=== PATIENT | female | born 1950 | race Caucasian/White ===

== ENCOUNTER 2025-03-26 11:32 | Inpatient (IN) | payer MEDICARE, MEDICAID ==
[2025-03-26 12:29] LABS: #Basophils 0.09 10x3/uL (0.0-0.2); #Eosinophils 0.20 10x3/uL (0.0-0.7); #Monocytes 1.24 10x3/uL (0.11-0.59); #Neutrophils 7.50 10x3/uL (1.40-6.50); %Basophils 0.9 % (0.0-1.0); %Eosinophils 2.0 % (0.0-10.0); %Lymphocytes 11.4 % (21.0-51.0); %Monocytes 12.1 % (0.0-10.0); %Neutrophils 73.3 % (42.0-75.0); Hematocrit 39.7 % (36.0-47.0); Hemoglobin 12.2 g/dL (12.0-16.0); Mean Corpuscular Hemoglobin 30.5 pg (27.0-31.0); Mean Corpuscular Volume 99.3 fL (78.0-98.0); Platelet Count 266 10x3/uL (130-400); Red Blood Cell (RBC) Count 4.00 mill/uL (4.20-5.40); White Blood Cell (WBC) Count 10.22 10x3/uL (4.8-10.8)
[2025-03-26 13:02] LABS: ALT (SGPT) 11 U/L (Less than 34); AST (SGOT) 29 U/L (11-34); Albumin 3.0 g/dL (3.1-4.5); Alkaline Phosphatase 96 U/L (40-110); Anion Gap 15 mmol/L (10-20); BUN (Urea Nitrogen) 28 mg/dL (9.8-20.1); Bilirubin, Total 0.4 mg/dL (0.3-1.2); Calc. Creatinine Clearance 0 mL/min (70-130); Calcium 9.0 mg/dL (7.8-10.44); Carbon Dioxide 27 mmol/L (23-31); Chloride 108 mmol/L (98-107); Globulin 3.5 g/dL (2.4-3.5); Glucose 95 mg/dL (83-110); Magnesium 1.9 mg/dL (1.6-2.6); Potassium 5.1 mmol/L (3.5-5.1); Sodium 145 mmol/L (136-145)
[2025-03-26] MEDS ORDERED: Furosemide 40 MG (4 mL) VIAL ONE (13:15)
[2025-03-26] MEDS ORDERED: Ondansetron PF 4 MG/2 ML Vial IVP PRN (15:27)
[2025-03-26] MEDS ORDERED: Dextrose 50% Abboject 50 ML SYRINGE SLOW IVP PRN (15:27)
[2025-03-26] MEDS ORDERED: Glucagon 1 MG/ML KIT IM PRN (15:27)
[2025-03-26] MEDS ORDERED: cefTRIAXone (ROCEPHIN) 2 GM VIAL ONE (15:47)
[2025-03-26] MEDS ORDERED: Azithromycin 500 MG VIAL ONE (15:47)
[2025-03-26] MEDS: Azithromycin 500 MG in Sodium Chloride 0.9% 250 ML 250 ML IVPB SCH (18:34)
[2025-03-26] MEDS: Famotidine 20 MG TAB PO SCH (20:44)
[2025-03-27 03:58] LABS: #Basophils 0.09 10x3/uL (0.0-0.2); #Eosinophils 0.17 10x3/uL (0.0-0.7); #Monocytes 1.04 10x3/uL (0.11-0.59); #Neutrophils 7.00 10x3/uL (1.40-6.50); %Basophils 1.0 % (0.0-1.0); %Eosinophils 1.8 % (0.0-10.0); %Lymphocytes 10.2 % (21.0-51.0); %Monocytes 11.2 % (0.0-10.0); %Neutrophils 75.5 % (42.0-75.0); Hematocrit 39.6 % (36.0-47.0); Hemoglobin 11.4 g/dL (12.0-16.0); Mean Corpuscular Hemoglobin 29.4 pg (27.0-31.0); Mean Corpuscular Volume 102.1 fL (78.0-98.0); Platelet Count 273 10x3/uL (130-400); Red Blood Cell (RBC) Count 3.88 mill/uL (4.20-5.40); White Blood Cell (WBC) Count 9.28 10x3/uL (4.8-10.8)
[2025-03-27 04:13] LABS: ALT (SGPT) 9 U/L (Less than 34); AST (SGOT) 11 U/L (11-34); Albumin 2.9 g/dL (3.1-4.5); Alkaline Phosphatase 90 U/L (40-110); Anion Gap 13 mmol/L (10-20); BUN (Urea Nitrogen) 24 mg/dL (9.8-20.1); Bilirubin, Total 0.4 mg/dL (0.3-1.2); Calc. Creatinine Clearance 127 mL/min (70-130); Calcium 9.1 mg/dL (7.8-10.44); Carbon Dioxide 30 mmol/L (23-31); Chloride 110 mmol/L (98-107); Globulin 3.1 g/dL (2.4-3.5); Glucose 100 mg/dL (83-110); Magnesium 1.9 mg/dL (1.6-2.6); Potassium 4.3 mmol/L (3.5-5.1); Sodium 149 mmol/L (136-145)
[2025-03-27] MEDS: Furosemide 20 MG (2 mL) VIAL SLOW IVP SCH ×2 (06:34→14:36)
[2025-03-27] MEDS: Acetaminophen 500 MG TAB PO PRN (08:36)
[2025-03-27] MEDS: cefTRIAXone\\ROCEPHIN 2 GM in Sodium Chloride 0.9% 100 ML IVPB SCH (16:31)
[2025-03-27] MEDS: hydrALAZINE 10 MG TAB PO SCH (21:08)
[2025-03-27] MEDS: Calcium Carbonate 600 MG + Vit D TAB PO SCH (21:09)
[2025-03-27] MEDS: Gabapentin 300 MG CAP PO SCH (21:09)
[2025-03-27] MEDS: Artificial Tear Ophth Sol 15 ML BOT EA EYE SCH (21:58)
[2025-03-28 03:50] LABS: #Basophils 0.07 10x3/uL (0.0-0.2); #Eosinophils 0.23 10x3/uL (0.0-0.7); #Monocytes 1.11 10x3/uL (0.11-0.59); #Neutrophils 5.29 10x3/uL (1.40-6.50); %Basophils 0.9 % (0.0-1.0); %Eosinophils 2.9 % (0.0-10.0); %Lymphocytes 16.2 % (21.0-51.0); %Monocytes 13.8 % (0.0-10.0); %Neutrophils 66.0 % (42.0-75.0); Hematocrit 35.5 % (36.0-47.0); Hemoglobin 10.5 g/dL (12.0-16.0); Mean Corpuscular Hemoglobin 29.7 pg (27.0-31.0); Mean Corpuscular Volume 100.6 fL (78.0-98.0); Platelet Count 254 10x3/uL (130-400); Red Blood Cell (RBC) Count 3.53 mill/uL (4.20-5.40); White Blood Cell (WBC) Count 8.02 10x3/uL (4.8-10.8)
[2025-03-28 04:15] LABS: Anion Gap 13 mmol/L (10-20); BUN (Urea Nitrogen) 17 mg/dL (9.8-20.1); Calc. Creatinine Clearance 150 mL/min (70-130); Calcium 9.2 mg/dL (7.8-10.44); Carbon Dioxide 32 mmol/L (23-31); Chloride 104 mmol/L (98-107); Glucose 84 mg/dL (83-110); Potassium 3.6 mmol/L (3.5-5.1); Sodium 145 mmol/L (136-145)
[2025-03-28] MEDS: Losartan 25 MG TAB PO SCH (08:38)
[2025-03-28] MEDS: Colestipol 1 GM TAB PO SCH (08:38)
[2025-03-28] MEDS: Aspirin Chewable 81 MG TAB PO SCH (08:38)
[2025-03-28] MEDS: Spironolactone 25 MG TAB PO SCH (08:40)
[2025-03-28] MEDS ORDERED: Polyvinyl Alcohol 1.4%/Povidone 0.6% Opth Drops EA EYE SCH (09:00)
[2025-03-28] MEDS: Pantoprazole 40 MG DR.TAB PO SCH (12:57)
[2025-03-29 04:33] LABS: Hematocrit 40.7 % (36.0-47.0); Hemoglobin 12.1 g/dL (12.0-16.0); Mean Corpuscular Hemoglobin 30.0 pg (27.0-31.0); Mean Corpuscular Volume 100.7 fL (78.0-98.0); Platelet Count 257 10x3/uL (130-400); Red Blood Cell (RBC) Count 4.04 mill/uL (4.20-5.40); White Blood Cell (WBC) Count 8.51 10x3/uL (4.8-10.8)
[2025-03-29 04:46] LABS: Anion Gap 14 mmol/L (10-20); BUN (Urea Nitrogen) 19 mg/dL (9.8-20.1); Calc. Creatinine Clearance 120 mL/min (70-130); Calcium 9.4 mg/dL (7.8-10.44); Carbon Dioxide 35 mmol/L (23-31); Chloride 100 mmol/L (98-107); Glucose 92 mg/dL (83-110); Potassium 3.6 mmol/L (3.5-5.1); Sodium 145 mmol/L (136-145)
[2025-03-29] MEDS: Pantoprazole 40 MG DR.TAB PO SCH (08:41)
[2025-03-29] MEDS ORDERED: Polyvinyl Alcohol 1.4%/Povidone 0.6% Opth Drops EA EYE SCH (09:00)
[2025-03-29] MEDS: Sacubitril 24MG/Valsartan 26 MG TAB PO SCH (20:55)
[2025-03-30 04:08] LABS: Hematocrit 38.9 % (36.0-47.0); Hemoglobin 11.6 g/dL (12.0-16.0); Mean Corpuscular Hemoglobin 29.4 pg (27.0-31.0); Mean Corpuscular Volume 98.5 fL (78.0-98.0); Platelet Count 272 10x3/uL (130-400); Red Blood Cell (RBC) Count 3.95 mill/uL (4.20-5.40); White Blood Cell (WBC) Count 8.95 10x3/uL (4.8-10.8)
[2025-03-30 04:29] LABS: Anion Gap 15 mmol/L (10-20); BUN (Urea Nitrogen) 19 mg/dL (9.8-20.1); Calc. Creatinine Clearance 134 mL/min (70-130); Calcium 9.3 mg/dL (7.8-10.44); Carbon Dioxide 35 mmol/L (23-31); Chloride 98 mmol/L (98-107); Glucose 94 mg/dL (83-110); Potassium 3.5 mmol/L (3.5-5.1); Sodium 144 mmol/L (136-145)
[2025-03-30 05:05] VITALS: BMI 47.2
[2025-03-30] MEDS: Mirabegron ER 25 MG ER.TAB PO SCH (08:30)
[2025-03-30] MEDS: Potassium Bicarbonate/Cit Ac 20 MEQ TAB PO SCH (11:37)
[2025-03-30] MEDS: Magnesium 2 GM/50 ML(in water) 2 GM in Premix 1 BAG IVPB SCH (11:40)
[2025-03-30] MEDS: Diclofenac 1% 50 GM TOPICAL GEL TP PRN (18:43)
[2025-03-30] MEDS: Metoprolol Succinate XL 50 MG ER.TAB PO SCH (20:45)
[2025-03-31] MEDS: Sacubitril 24MG/Valsartan 26 MG TAB PO SCH (04:42)
[2025-03-31 05:01] LABS: Anion Gap 16 mmol/L (10-20); BUN (Urea Nitrogen) 22 mg/dL (9.8-20.1); Calc. Creatinine Clearance 104 mL/min (70-130); Calcium 9.3 mg/dL (7.8-10.44); Carbon Dioxide 33 mmol/L (23-31); Chloride 94 mmol/L (98-107); Glucose 94 mg/dL (83-110); Magnesium 1.9 mg/dL (1.6-2.6); Potassium 3.9 mmol/L (3.5-5.1); Sodium 139 mmol/L (136-145)
[2025-03-31] MEDS: Magnesium Oxide 400 MG TAB PO SCH (20:51)
[2025-04-01 04:35] LABS: Anion Gap 14 mmol/L (10-20); BUN (Urea Nitrogen) 32 mg/dL (9.8-20.1); Calc. Creatinine Clearance 76 mL/min (70-130); Calcium 9.3 mg/dL (7.8-10.44); Carbon Dioxide 37 mmol/L (23-31); Chloride 95 mmol/L (98-107); Glucose 106 mg/dL (83-110); Potassium 3.9 mmol/L (3.5-5.1); Sodium 142 mmol/L (136-145)
[2025-04-01] MEDS: Furosemide 40 MG TAB PO SCH (08:35)
[2025-04-02 04:55] LABS: Anion Gap 15 mmol/L (10-20); BUN (Urea Nitrogen) 48 mg/dL (9.8-20.1); Calc. Creatinine Clearance 63 mL/min (70-130); Calcium 9.0 mg/dL (7.8-10.44); Carbon Dioxide 33 mmol/L (23-31); Chloride 94 mmol/L (98-107); Glucose 98 mg/dL (83-110); Potassium 3.9 mmol/L (3.5-5.1); Sodium 138 mmol/L (136-145)
[2025-04-02] MEDS ORDERED: Furosemide 40 MG TAB PO SCH (07:30)
[2025-04-02 20:51] VITALS: BMI 45.6
[2025-04-02] MEDS: Metoprolol Succinate XL 25 MG ER.TAB PO SCH (21:05)
[2025-04-03 04:02] LABS: Anion Gap 15 mmol/L (10-20); BUN (Urea Nitrogen) 44 mg/dL (9.8-20.1); Calc. Creatinine Clearance 84 mL/min (70-130); Calcium 9.1 mg/dL (7.8-10.44); Carbon Dioxide 31 mmol/L (23-31); Chloride 97 mmol/L (98-107); Glucose 103 mg/dL (83-110); Potassium 4.3 mmol/L (3.5-5.1); Sodium 139 mmol/L (136-145)
[2025-04-04 03:55] LABS: Anion Gap 15 mmol/L (10-20); BUN (Urea Nitrogen) 40 mg/dL (9.8-20.1); Calc. Creatinine Clearance 93 mL/min (70-130); Calcium 9.5 mg/dL (7.8-10.44); Carbon Dioxide 32 mmol/L (23-31); Chloride 98 mmol/L (98-107); Glucose 100 mg/dL (83-110); Potassium 4.4 mmol/L (3.5-5.1); Sodium 141 mmol/L (136-145)
[2025-04-04 16:25] VITALS: BP 122/59; TEMP 97.7
== END 2025-04-04 17:49 | DRG 177 ==
LOC: ERS 11:32 → ERHOLD 15:03 → PCU 17:54 → UNDODISIN 03-31 16:30
PROVIDERS: ADMIT Family Medicine; ATTEND Family Medicine
DX: J15.8 Pneumonia due to other specified bacteria (principal); I50.23 Acute on chronic systolic (congestive) heart failure; J96.01 Acute respiratory failure with hypoxia; F03.93 Unspecified dementia, unspecified severity, with mood disturbance; I13.0 Hypertensive heart and chronic kidney disease with heart failure and stage 1 through stage 4 chronic kidney disease, or unspecified chronic kidney disease; F03.94 Unspecified dementia, unspecified severity, with anxiety; I48.20 Chronic atrial fibrillation, unspecified; I42.0 Dilated cardiomyopathy; Z66 Do not resuscitate; G40.909 Epilepsy, unspecified, not intractable, without status epilepticus; E11.22 Type 2 diabetes mellitus with diabetic chronic kidney disease; N18.9 Chronic kidney disease, unspecified; E11.51 Type 2 diabetes mellitus with diabetic peripheral angiopathy without gangrene; M10.9 Gout, unspecified; G47.00 Insomnia, unspecified; Z88.8 Allergy status to other drugs, medicaments and biological substances; Z91.013 Allergy to seafood; Z88.6 Allergy status to analgesic agent; Z95.0 Presence of cardiac pacemaker; Z79.82 Long term (current) use of aspirin; Z79.84 Long term (current) use of oral hypoglycemic drugs
CPT/HCPCS: 36415; 36416; 71045; 71275; 80048; 80053; 83036; 83605; 83735; 83880; 84484; 85025; 85027; 87040; 93005; 96365; 96368; 96375; J0456; J0696; J1815; J1940; J3475; J7050